=== PATIENT | male | born 1990 | race Caucasian/White ===

== ENCOUNTER 2018-01-06 10:50 | Emergency (ER) | payer BC ==
[~2018-01-06] VITALS: Ht 180.3 cm; Wt 90.0 kg
[2018-01-06 10:56] VITALS: BP 122/71; PULSE 81; RESP 18; TEMP 98.2; O2SAT 100
[2018-01-06] MEDS ORDERED: MODA200T12 PO (11:17)
[2018-01-06] MEDS ORDERED: TRAZ100T10 PO (11:17)
[2018-01-06 11:19] VITALS: BP 139/70; PULSE 77; RESP 18; O2SAT 100
[2018-01-06] MEDS ORDERED: MORPHINE SULFATE 4 MG/ML INJ IV PUSH ONE ×2 (11:30→12:45)
[2018-01-06] MEDS ORDERED: KETOROLAC TROMETHAMINE 30 MG/ML (IVP) VIAL IV PUSH ONE ×2 (11:30→12:45)
[2018-01-06] MEDS ORDERED: METOCLOPRAMIDE HCL 10 MG/2 ML VIAL IV PUSH ONE (11:30)
[2018-01-06] MEDS ORDERED: SODIUM CHLOR 0.9% 1000 ML INJ 1,000 ML IV ONE ×2 (11:30→12:45)
[2018-01-06 11:32] VITALS: BP 148/77; PULSE 87; RESP 18; O2SAT 100
--- NOTE | 2018-01-06 11:36 | PD ---
HPI Chief Complaint: Flank/Kidney Pain Time Seen by Provider: 11:09 Travel History International Travel<30 days: No Contact w/Intl Traveler<30days: No Traveled to known affect area: No History of Present Illness HPI 27-year-old male the presents to the ED for evaluation of right-sided flank pain that radiates to the abdomen. Per patient she is never had this before. Per patient started 1 hour ago. Per patient the pain is severe 8 out of 10. Denies any history of kidney stones and himself with per patient he has a strong family history of kidney stones. No urinary issues. No bowel movement issues. No injury or trauma. Per patient the pain initially was on the flank and now it has moved to the abdomen and seems to be radiating. Seems like it is moving. Has not taken anything for this. He felt nauseous and vomited. Denies any surgeries. Denies any other medical issues at this time. Has no allergies to medication. No fevers chills or sweats. No bowel movement issues. PFSH Past Medical History Medical other: Yes (narcolepsy ) Sleep Apnea: Yes Tetanus Vaccination: Unknown Influenza Vaccination: No Past Surgical History Surgical History: No Previous Surgery Social History Alcohol Use: Yes (occ) Tobacco Use: Yes Substance Use: No Allergies-Medications (Allergen,Severity, Reaction): Coded Allergies: No Known Allergies (Verified Allergy, Unknown, 01/06/18) Reported Meds & Prescriptions Reported Meds & Active Scripts Active Diclofenac Sodium DR (Diclofenac Sodium) 75 Mg Tabdr 75 Mg PO BID PRN Zofran Odt (Ondansetron Odt) 4 Mg Tab 4 Mg SL Q6HR PRN Hydrocodone-Acetamin 5-325 mg (Hydrocodone/Acetaminophen) 5 Mg-325 Mg Tablet 1 Tab PO Q6HR PRN Flomax (Tamsulosin HCl) 0.4 Mg Cap 0.4 Mg PO HS Reported Modafinil 200 Mg Tab 200 Mg PO DAILY Trazodone (Trazodone HCl) 100 Mg Tablet 100 Mg PO HS Review of Systems Except as stated in HPI: all other systems reviewed are Neg Physical Exam Narrative GENERAL: SKIN: Warm and dry. HEAD: Atraumatic. Normocephalic. EYES: Pupils equal and round. No scleral icterus. No injection or drainage. ENT: No nasal bleeding or discharge. Mucous membranes pink and moist. Tongue is midline. No uvula deviation. NECK: Trachea midline. No JVD. CARDIOVASCULAR: Regular rate and rhythm. No murmurs, S3, S4. RESPIRATORY: No accessory muscle use. Clear to auscultation. Breath sounds equal bilaterally. GASTROINTESTINAL: Abdomen soft, non-tender, nondistended. Hepatic and splenic margins not palpable. A producible to pain on the right flank. MUSCULOSKELETAL: Extremities without clubbing, cyanosis, or edema. No obvious deformities. Full range of motion of the upper and lower extremities bilaterally. 2+ pulses bilaterally. NEUROLOGICAL: Awake and alert. No obvious cranial nerve deficits. Motor grossly within normal limits. Five out of 5 muscle strength in the arms and legs. Normal speech. PSYCHIATRIC: Appropriate mood and affect; insight and judgment normal. Data Data Last Documented VS Vital Signs Date Time Temp Pulse Resp B/P (MAP) Pulse Ox O2 Delivery O2 Flow Rate FiO2 01/06/18 11:32 87 18 148/77 (100) 100 01/06/18 11:19 Room Air 01/06/18 10:56 98.2 Orders Orders Complete Blood Count With Diff (01/06/18 11:11) Comprehensive Metabolic Panel (01/06/18 11:11) Urinalysis - C+S If Indicated (01/06/18 11:11) Iv Access Insert/Monitor (01/06/18 11:11) Morphine Inj (Morphine Inj) (01/06/18 11:30) Metoclopramide Inj (Reglan Inj) (01/06/18 11:30) Sodium Chlor 0.9% 1000 Ml Inj (Ns 1000 M (01/06/18 11:30) Ketorolac Inj (Toradol Inj) (01/06/18 11:30) Ct Abd/Pel W/O Iv Contrast (01/06/18 ) Morphine Inj (Morphine Inj) (01/06/18 12:45) Ketorolac Inj (Toradol Inj) (01/06/18 12:45) Sodium Chlor 0.9% 1000 Ml Inj (Ns 1000 M (01/06/18 12:45) Labs Laboratory Tests Test 01/06/18 11:10 01/06/18 11:15 Urine Color YELLOW Urine Turbidity CLEAR Urine pH 8.0 Urine Specific [place] 1.024 Urine Protein NEG mg/dL Urine Glucose (UA) NEG mg/dL Urine Ketones NEG mg/dL Urine Occult Blood NEG Urine Nitrite NEG Urine Bilirubin NEG Urine Urobilinogen LESS THAN 2.0 MG/DL Urine Leukocyte Esterase NEG Urine RBC 1 /hpf Urine WBC LESS THAN 1 /hpf Urine Mucus FEW /lpf Microscopic Urinalysis Comment CULT NOT INDICATED White Blood Count 7.9 TH/MM3 Red Blood Count 5.02 MIL/MM3 Hemoglobin 15.7 GM/DL Hematocrit 43.9 % Mean Corpuscular Volume 87.4 FL Mean Corpuscular Hemoglobin 31.2 PG Mean Corpuscular Hemoglobin Concent 35.7 % Red Cell Distribution Width 12.9 % Platelet Count 222 TH/MM3 Mean Platelet Volume 7.9 FL Neutrophils (%) (Auto) 69.4 % Lymphocytes (%) (Auto) 23.9 % Monocytes (%) (Auto) 5.7 % Eosinophils (%) (Auto) 0.7 % Basophils (%) (Auto) 0.3 % Neutrophils # (Auto) 5.5 TH/MM3 Lymphocytes # (Auto) 1.9 TH/MM3 Monocytes # (Auto) 0.4 TH/MM3 Eosinophils # (Auto) 0.1 TH/MM3 Basophils # (Auto) 0.0 TH/MM3 CBC Comment DIFF FINAL Differential Comment Blood Urea Nitrogen 13 MG/DL Creatinine 1.17 MG/DL Random Glucose 133 MG/DL Total Protein 8.0 GM/DL Albumin 4.4 GM/DL Calcium Level 9.0 MG/DL Alkaline Phosphatase 53 U/L Aspartate Amino Transf (AST/SGOT) 17 U/L Alanine Aminotransferase (ALT/SGPT) 27 U/L Total Bilirubin 0.3 MG/DL Sodium Level 138 MEQ/L Potassium Level 3.9 MEQ/L Chloride Level 104 MEQ/L Carbon Dioxide Level 25.1 MEQ/L Anion Gap 9 MEQ/L Estimat Glomerular Filtration Rate 74 ML/MIN [facility] Medical Decision Making Medical Screen Exam Complete: Yes Emergency Medical Condition: Yes Medical Record Reviewed: Yes Interpretation(s) CBC & BMP Diagram 01/06/18 11:15 Total Protein 8.0, Albumin 4.4, Calcium Level 9.0, Alkaline Phosphatase 53, Aspartate Amino Transf (AST/SGOT) 17, Alanine Aminotransferase (ALT/SGPT) 27, Total Bilirubin 0.3 Last Impressions Abdomen/Pelvis CT 01/06/18 0000 Signed Impressions: CONCLUSION: 1. There are bilateral nonobstructing renal calculi identified. Right distal u reteral calculus with slight upstream dilatation. The stone is approximately 1. 9 cm proximal to the ureterovesical junction. 2. Small fat-containing umbilical hernia. Differential Diagnosis Flank pain versus kidney stone versus acute abdomen versus acute on chronic pain versus muscle strain Narrative Course 27-year-old male the presents to the ED for evaluation of flank pain. Patient was properly examined and was found to have signs and symptoms consistent with appears to be possible kidney stone. Labs and imaging order. Patient was given IV pain medications. Labs and imaging showed 2.9 mm kidney stone which is apparently 1.9 cm from the UVJ area. Patient was reassessed and feels improved. Patient was given more pain medication to relieve his discomfort. He was told that kidney stone will likely pass on its own. I recommend close monitor with urologist outpatient. Patient was told that he has other kidney stones on his kidney. He will be given a prescription for Lortab, Flomax, Zofran, diclofenac sodium. Follow-up with PCP. See ED worsening symptoms. All questions were answered to the best of my ability. Diagnosis Primary Impression: Kidney stone on right side Patient Instructions: General Instructions Additional Instructions: Take medications as prescribed. Follow-up with urologist. See ED for any worsening symptoms. Do not drink or drive while taking pain medication. Apply ice or heat as needed for pain Drink plenty of water. Med/Other Pt SpecificInfo: Prescription(s) given Scripts Diclofenac Sodium (Diclofenac Sodium DR) 75 Mg Tabdr 75 MG PO BID Y for PAIN SCALE 1 TO 10, #20 TAB 0 Refills Prov: Iraj Castillo MD 01/06/18 Ondansetron Odt (Zofran Odt) 4 Mg Tab 4 MG SL Q6HR Y for Nausea/Vomiting, #20 TAB 0 Refills Prov: Iraj Castillo MD 01/06/18 Hydrocodone/Acetaminophen (Hydrocodone-Acetamin 5-325 mg) 5 Mg-325 Mg Tablet 1 TAB PO Q6HR Y for PAIN SCALE 1 TO 10, #12 Prov: Iraj Castillo MD 01/06/18 Tamsulosin (Flomax) 0.4 Mg Cap 0.4 MG PO HS for Manage Prostate Problems, #20 CAP 0 Refills Prov: Iraj Castillo MD 01/06/18 Disposition: 01 DISCHARGE HOME Condition: Stable Baljeet Villavicencioo PA Jan 06, 2018 11:36
[2018-01-06 11:38] LABS: AUTOMATED NEUTROPHIL # 5.5 TH/MM3 (1.8-7.7); BASOPHIL % 0.3 % (0.0-2.0); EOSINOPHIL # 0.1 TH/MM3 (0-0.4); EOSINOPHIL % 0.7 % (0.0-4.0); HEMATOCRIT 43.9 % (39.0-51.0); HEMOGLOBIN 15.7 GM/DL (13.0-17.0); LYMPH % 23.9 % (9.0-44.0); LYMPHOCYTE # 1.9 TH/MM3 (1.0-4.8); MEAN CELL VOLUME 87.4 FL (80.0-100.0); MEAN CORPUSCULAR HEMOGLOBIN 31.2 PG (27.0-34.0); MEAN CORPUSCULAR HGB CONC 35.7 % (32.0-36.0); MEAN PLATELET VOLUME 7.9 FL (7.0-11.0); MONO % 5.7 % (0.0-8.0); MONOCYTE # 0.4 TH/MM3 (0-0.9); NEUT % 69.4 % (16.0-70.0); PLATELET COUNT 222 TH/MM3 (150-450); RED BLOOD COUNT 5.02 MIL/MM3 (4.50-5.90); RED CELL DISTRIBUTION WIDTH 12.9 % (11.6-17.2); WHITE BLOOD COUNT 7.9 TH/MM3 (4.0-11.0)
[2018-01-06 11:48] LABS: BILIRUBIN, URINE NEG (NEG); BLOOD, URINE NEG (NEG); GLUCOSE,URINE NEG (NEG); KETONE, URINE NEG (NEG); MUCUS URINE FEW /lpf (OCC); NITRITE,URINE NEG (NEG); URINE COLOR YELLOW (YELLW/STRAW); URINE LEUKOCYTE ESTERASE NEG (NEG)
[2018-01-06 11:56] LABS: ALKALINE PHOSPHATASE 53 U/L (45-117); TOTAL BILIRUBIN ADULT 0.3 MG/DL (0.2-1.0)
--- NOTE | 2018-01-06 12:08 | RADRPT ---
EXAM DATE: 01/06/2018 12:01 PM EDT AGE/SEX: 27 years / Male INDICATIONS: Right flank pain today. CLINICAL DATA: This is the patient's initial encounter. Patient reports that signs and symptoms have been present for 1 day and indicates a pain score of 8/10. MEDICAL/SURGICAL HISTORY: None. None. RADIATION DOSE: 10.03 CTDI (mGy) COMPARISON: No prior exams available for comparison. TECHNIQUE: Multiple contiguous axial images were obtained through the abdomen. Images were obtained using multiple row detector helical technique. Using dose reduction techniques, radiation dose was ke pt as low as reasonably achievable to obtain optimal diagnostic quality images. FINDINGS: The lung bases are clear. Review of bone windows demonstrate no worrisome osseous lesions. There are no pleural or pericardial effusions identified. Liver, gallbladder, spleen, pancreas, adrenal glands and stomach are normal in appearance. There are bilateral nonobstructing renal calculi identified lar gest on the left at the upper pole measuring 1.8 mm and a punctate mid pole right renal calculus note d. There is a stone within the distal right ureter on axial image 143 measuring 2.9 mm. There is very slight prominence of the right ureter and intrarenal collecting system. Small fat-containing umbilic al hernia. Appendix normal. CONCLUSION: 1. There are bilateral nonobstructing renal calculi identified. Right distal ureteral calculus with slight upstream dilatation. The stone is approximately 1.9 cm proximal to the ureterovesical junction . 2. Small fat-containing umbilical hernia. Electronically signed by: Garret Adams MD 01/06/2018 12:07 PM EDT
[2018-01-06 12:30] LABS: ALBUMIN 4.4 GM/DL (3.4-5.0); ALT (GPT) 27 U/L (12-78); AST (GOT) 17 U/L (15-37); BICARBONATE 25.1 MEQ/L (21.0-32.0); BLOOD UREA NITROGEN 13 MG/DL (7-18); CHLORIDE 104 MEQ/L (98-107); CREATININE 1.17 MG/DL (0.60-1.30); GLOMERULAR FILTRATION RATE 74 ML/MIN (>89); GLUCOSE,RANDOM 133 MG/DL (74-106); SODIUM (NA) 138 MEQ/L (136-145)
[2018-01-06] MEDS ORDERED: DICL75TA PO (12:34)
[2018-01-06] MEDS ORDERED: HYDR-3516 PO (12:34)
[2018-01-06] MEDS ORDERED: ZOFR4TAB3 SL (12:34)
[2018-01-06] MEDS ORDERED: TAMS5CAP PO (12:34)
[2018-01-06 12:51] VITALS: BP 144/66; PULSE 72; RESP 18; O2SAT 100
[2018-01-06 14:00] VITALS: BP 130/70
== END 2018-01-06 13:59 | disposition home or self-care (01) ==
LOC: NEPE 10:50
DX: N20.0 Calculus of kidney (principal); R11.2 Nausea with vomiting, unspecified; K42.9 Umbilical hernia without obstruction or gangrene; Z72.0 Tobacco use
CPT/HCPCS: 74176; 80053; 81001; 85025; 96361; 96374; 96375; 96376; 99284; J1885; J2270; J2765; J7030